=== PATIENT | male | born 1990 | race Hispanic/Latino ===

== ENCOUNTER 2020-10-01 17:27 | Emergency (ER) | payer OTHER ==
--- NOTE | 2020-10-01 18:40 | RAD ---
EXAM: Chest 2 views: HISTORY: Chest pain and shortness of breath COMPARISON: 06/29/2019 FINDINGS: There is a normal-sized cardiomediastinal silhouette. There is no evidence of consolidation, mass, or pleural effusion. No acute osseous abnormality. IMPRESSION: No evidence of acute cardiopulmonary disease
== END 2020-10-01 19:40 ==
LOC: NAV ERS 17:27
DX: U07.1 COVID-19 (principal); K21.9 Gastro-esophageal reflux disease without esophagitis; Z79.899 Other long term (current) drug therapy
CPT/HCPCS: 71046; 93005